=== PATIENT | male | born 2000 | race Caucasian/White ===

== ENCOUNTER 2023-03-06 15:29 | Emergency (ER) | payer SELFPAY ==
[~2023-03-06] VITALS: Ht 182.9 cm; Wt 34.0 kg
[2023-03-06 15:31] VITALS: BP 127/87; PULSE 97; RESP 18; TEMP 98.3; O2SAT 97
== END 2023-03-06 15:55 | disposition home or self-care (01) ==
LOC: MED 15:29
DX: Z02.89 Encounter for other administrative examinations (principal); V49.88XA Car occupant (driver) (passenger) injured in other specified transport accidents, initial encounter; Y93.9 Activity, unspecified; Y92.89 Other specified places as the place of occurrence of the external cause; Y99.8 Other external cause status
CPT/HCPCS: 99283